=== PATIENT | female | born 1950 | race American Indian/Alaskan Native ===

== ENCOUNTER 2017-03-14 12:39 | Emergency (ER) | payer MEDICAID, MEDICARE ==
--- NOTE | 2017-03-14 13:47 | XRay Report ---
PA and lateral chest: Chest pain, SOB. There are singular bilateral curvilinear areas of increased density. The lungs otherwise are clear. The aorta is tortuous with calcification in the aortic arch. The heart is probably borderline in size but there is no vascular congestion. These findings are generally unchanged from prior study in October 2015. Impressions: Bilateral pleural scarring. Borderline heart size.
[2017-03-14 14:25] LABS: Basophils % (Auto) 0.2 % (0.0-1.8); Eosinophils % (Auto) 0.9 % (0.0-4.3); Hematocrit 35.6 % (30.3-42.9); Hemoglobin 11.4 gm/dl (10.1-14.3); Mean Corpuscular HGB Conc 32 % (30-34); Mean Corpuscular Volume 80 fl (79-97); Platelet Count 263 K/mm3 (140-440); Red Blood Count 4.45 M/mm3 (3.65-5.03); Red Cell Distribution Width 18.7 % (13.2-15.2); White Blood Count 7.2 K/mm3 (4.5-11.0)
[2017-03-14 14:33] LABS: Mean Corpuscular Hemoglobin 26 pg (28-32)
[2017-03-14 14:42] LABS: Anion Gap 15 mmol/L; Blood Urea Nitrogen 9 mg/dL (7-17); Calcium 8.3 mg/dL (8.4-10.2); Carbon Dioxide 29 mmol/L (22-30); Chloride 93.4 mmol/L (98-107); Glucose 109 mg/dL (65-100); Potassium 4.2 mmol/L (3.6-5.0); Sodium 133 mmol/L (137-145)
[2017-03-14] MEDS ORDERED: PERCOCET 5/325 PO ONE (20:55)
--- NOTE | 2017-03-14 21:02 | Emergency Department Report ---
ED General Adult HPI - General Chief complaint: Chest Pain Stated complaint: CHEST PAIN Time Seen by Provider: 03/14/17 20:25 Source: patient Mode of arrival: Ambulatory Limitations: No Limitations - History of Present Illness Initial comments: 66-year-old female presents to the emergency department complaining of upper chest pain. Patient states for the past day and a half she has been having constant, sharp pain in the upper, center of her chest that radiates to the right and under her right breast. She reports associated shortness of breath and nausea. Patient states she has had similar symptoms in the past and was diagnosed with inflammation. She states this time the pain is more severe. There are no other complaints. -: Gradual, days(s) (1.5) Location: chest Severity scale (0 -10): 9 Quality: sharp Consistency: constant Improves with: none Worsens with: movement Associated Symptoms: nausea/vomiting (nausea only), shortness of breath Treatments Prior to Arrival: none - Related Data Home Medications Medication Instructions Recorded Confirmed Last Taken Levothyroxine [Synthroid] 1 tab PO DAILY 10/03/13 03/14/17 03/14/17 Ipratropium/Albuterol Sulfate 2 inhalation INHALATION DAILY 08/25/14 03/14/17 [Combivent Respimat] Amlodipine Besylate [Amlodipine 10 mg PO DAILY 11/09/14 03/14/17 03/14/17 Besylate] Anastrozole [Anastrozole] 1 mg PO DAILY 11/09/14 03/14/17 03/14/17 Valsartan/Hydrochlorothiazide 1 tab PO DAILY 11/09/14 03/14/17 03/14/17 [Valsartan-Hctz 320-25 mg] Aspirin EC [Aspirin Enteric Coated 81 mg PO DAILY 03/07/15 03/14/17 03/14/17 TAB] Carvedilol [Coreg] 3.125 mg PO BID 03/16/15 03/14/17 03/14/17 Lactulose 10 gm PO TID 10/20/15 03/14/17 03/14/17 Budesoni/Formotero 160-4.5(Nf) 2 puff IH BID 03/14/17 03/14/17 03/14/17 [Symbicort 160-4.5 (Nf)] Colchicine 0.6 mg PO BID 03/14/17 03/14/17 03/14/17 Letrozole (Nf) [Femara (Nf)] 2.5 mg PO QDAY 03/14/17 03/14/17 03/14/17 Sennosides [Senna] 2 tab PO QHS 03/14/17 03/14/17 03/13/17 Previous Rx's Medication Instructions Recorded Last Taken Type Ergocalciferol [Vitamin D2] 50,000 unit PO QMONTH #13 capsule 10/25/14 03/19/15 Rx Omeprazole [PriLOSEC] 40 mg PO DAILY #30 capsule. 10/25/14 03/14/17 Rx hydrALAZINE [Apresoline TAB] 50 mg PO BID #60 tablet 10/25/14 03/14/17 Rx Docusate Sodium [Colace] 100 mg PO BID PRN #30 capsule 03/20/15 Unknown Rx HYDROcodone/APAP 5-325 [[place] 1 each PO Q4HR PRN #20 tablet 03/29/15 Unknown Rx 5/325] Albuterol *Only Ed* [Proventil 2.5 mg IH Q4H PRN #1 box 10/22/15 Unknown Rx 0.5% NEBS] Ipratropium [Atrovent NEB] 0.5 mg IH Q8HRT PRN #1 box 10/22/15 Unknown Rx Nebulizer [Compact Compressor 1 each MC DAILY PRN #1 kit 10/22/15 Unknown Rx Nebulizer] Prednisone [predniSONE 10 mg 10 mg PO .TAPER #1 tab.ds.pk 10/22/15 Unknown Rx (6-Day Pack, 21 Tabs)] oxyCODONE /ACETAMINOPHEN [Percocet 1 tab PO Q6HR PRN #20 tablet 03/14/17 Unknown Rx 5/325] Allergies Allergy/AdvReac Type Severity Reaction Status Date / Time acetaminophen [From Tylenol] Allergy Itching Verified 03/14/17 12:52 Penicillins Allergy Itching Verified 03/14/17 12:52 CHEMO Allergy Shortness Uncoded 10/19/15 15:25 of Breath RADIATION Allergy Shortness Uncoded 10/19/15 15:25 of Breath ED Review of Systems ROS: Stated complaint: CHEST PAIN Other details as noted in HPI Comment: All other systems reviewed and negative Respiratory: shortness of breath Cardiovascular: chest pain Gastrointestinal: nausea ED Past Medical Hx - Past Medical History Previous Medical History?: Yes Hx Hypertension: Yes (on coreg) Hx Heart Attack/AMI: No Hx Diabetes: No Hx GERD: Yes Hx Liver Disease: No Hx Renal Disease: No Hx of Cancer: Yes (breast cancer) Hx Sickle Cell Disease: No Hx Arthritis: Yes Hx Kidney Stones: No Hx Asthma: No Hx COPD: Yes (O2 2L N/C AT BEDTIME) Hx Tuberculosis: No Hx HIV: No Additional medical history: hypothyroid. morbid obesity. TIA. gout - Surgical History Past Surgical History?: Yes Hx Open Heart Surgery: No Hx Cholecystectomy: Yes Hx Appendectomy: No Hx Breast Surgery: Yes (LEFT MASTECTOMY) Additional Surgical History: anorectal surgery..POLYPS REMOVED. - Family History Family history: no significant - Social History Smoking Status: Never Smoker Substance Use Type: None - Medications Home Medications: Home Medications Medication Instructions Recorded Confirmed Last Taken Type Levothyroxine [Synthroid] 1 tab PO DAILY 10/03/13 03/14/17 03/14/17 History Ipratropium/Albuterol Sulfate 2 inhalation INHALATION DAILY 08/25/14 03/14/17 History [Combivent Respimat] Ergocalciferol [Vitamin D2] 50,000 unit PO QMONTH #13 capsule 10/25/14 03/14/17 03/19/15 Rx Omeprazole [PriLOSEC] 40 mg PO DAILY #30 capsule. 10/25/14 03/14/17 03/14/17 Rx hydrALAZINE [Apresoline TAB] 50 mg PO BID #60 tablet 10/25/14 03/14/17 03/14/17 Rx Amlodipine Besylate [Amlodipine 10 mg PO DAILY 11/09/14 03/14/17 03/14/17 History Besylate] Anastrozole [Anastrozole] 1 mg PO DAILY 11/09/14 03/14/17 03/14/17 History Valsartan/Hydrochlorothiazide 1 tab PO DAILY 11/09/14 03/14/17 03/14/17 History [Valsartan-Hctz 320-25 mg] Aspirin EC [Aspirin Enteric Coated 81 mg PO DAILY 03/07/15 03/14/17 03/14/17 History TAB] Carvedilol [Coreg] 3.125 mg PO BID 03/16/15 03/14/17 03/14/17 History Docusate Sodium [Colace] 100 mg PO BID PRN #30 capsule 03/20/15 03/14/17 Unknown Rx HYDROcodone/APAP 5-325 [[place] 1 each PO Q4HR PRN #20 tablet 03/29/15 03/14/17 Unknown Rx 5/325] Lactulose 10 gm PO TID 10/20/15 03/14/17 03/14/17 History Albuterol *Only Ed* [Proventil 2.5 mg IH Q4H PRN #1 box 10/22/15 03/14/17 Unknown Rx 0.5% NEBS] Ipratropium [Atrovent NEB] 0.5 mg IH Q8HRT PRN #1 box 10/22/15 03/14/17 Unknown Rx Nebulizer [Compact Compressor 1 each MC DAILY PRN #1 kit 10/22/15 03/14/17 Unknown Rx Nebulizer] Prednisone [predniSONE 10 mg 10 mg PO .TAPER #1 tab.ds.pk 10/22/15 03/14/17 Unknown Rx (6-Day Pack, 21 Tabs)] Budesoni/Formotero 160-4.5(Nf) 2 puff IH BID 03/14/17 03/14/17 03/14/17 History [Symbicort 160-4.5 (Nf)] Colchicine 0.6 mg PO BID 03/14/17 03/14/17 03/14/17 History Letrozole (Nf) [Femara (Nf)] 2.5 mg PO QDAY 03/14/17 03/14/17 03/14/17 History Sennosides [Senna] 2 tab PO QHS 03/14/17 03/14/17 03/13/17 History oxyCODONE /ACETAMINOPHEN [Percocet 1 tab PO Q6HR PRN #20 tablet 03/14/17 Unknown Rx 5/325] ED Physical Exam - General Limitations: No Limitations General appearance: alert, in no apparent distress - Head Head exam: Present: atraumatic, normocephalic - Eye Eye exam: Present: normal appearance, PERRL, EOMI - ENT ENT exam: Present: normal exam, normal orophraynx, mucous membranes moist - Neck Neck exam: Present: normal inspection, full ROM. Absent: tenderness - Respiratory Respiratory exam: Present: normal lung sounds bilaterally, chest wall tenderness (superior anterior chest wall tender to palpation. Palpation reproduces her complaint.). Absent: respiratory distress - Cardiovascular Cardiovascular Exam: Present: regular rate, normal rhythm, normal heart sounds - GI/Abdominal GI/Abdominal exam: Present: soft, normal bowel sounds. Absent: distended, tenderness - Extremities Exam Extremities exam: Present: normal inspection, full ROM. Absent: tenderness - Back Exam Back exam: Present: normal inspection, full ROM. Absent: tenderness - Neurological Exam Neurological exam: Present: alert, oriented X3. Absent: motor sensory deficit - Skin Skin exam: Present: warm, dry, intact ED Course Vital Signs 03/14/17 03/14/17 03/14/17 12:52 19:32 19:45 Temperature 98.0 F Pulse Rate 66 59 L 66 Respiratory 18 18 15 Rate Blood Pressure 143/77 130/96 O2 Sat by Pulse 99 96 Oximetry 03/14/17 20:13 Temperature Pulse Rate Respiratory 18 Rate Blood Pressure O2 Sat by Pulse 95 Oximetry ED Medical Decision Making - Lab Data Result diagrams: 03/14/17 13:33 03/14/17 13:33 - EKG Data -: EKG Interpreted by Ok EKG shows normal: sinus rhythm, intervals, QRS complexes, ST-T waves Rate: normal - EKG Data When compared to previous EKG there are: previous EKG unavailable Interpretation: normal EKG, other (left axis deviation) - Radiology Data Radiology results: report reviewed Chest x-ray shows no acute cardiopulmonary abnormality. - Medical Decision Making Lab and imaging results reviewed and discussed with the patient. Patient has had a nonischemic ECG and 2 negative troponins. Patient will be discharged home at this time to follow up with her primary care physician. - Differential Diagnosis atypical chest pain, chest wall pain Critical care attestation.: If time is entered above; I have spent that time in minutes in the direct care of this critically ill patient, excluding procedure time. ED Disposition Clinical Impression: Non-cardiac chest pain Disposition: DISCHARGED TO HOME OR SELFCARE Is pt being admited?: No Condition: Stable Instructions: Chest Pain (ED) Prescriptions: oxyCODONE /ACETAMINOPHEN [Percocet 5/325] 1 tab PO Q6HR PRN #20 tablet PRN Reason: Pain Referrals: DIALLO MELENDREZ MD [Primary Care Provider] - 3-5 Days Time of Disposition: 21:03
[2017-03-14 21:49] VITALS: BP 145/73
== END 2017-03-14 21:40 | disposition home or self-care (01) ==
LOC: ED 12:39
DX: R07.9 Chest pain, unspecified (principal); I10 Essential (primary) hypertension; K21.9 Gastro-esophageal reflux disease without esophagitis; Z85.3 Personal history of malignant neoplasm of breast; E03.9 Hypothyroidism, unspecified; E66.01 Morbid (severe) obesity due to excess calories
CPT/HCPCS: 36415; 71020; 80048; 84484; 85025; 93005; 93010; 99285

== ENCOUNTER 2018-02-18 10:20 | Outpatient (CLI) | payer MEDICARE ==
--- NOTE | 2018-02-18 11:09 | XRay Report ---
XRAY RIGHT SHOULDER THREE VIEWS: 02/18/18 10:20:00 CLINICAL: Right shoulder pain. FINDINGS: Mild osteopenia. No fracture or dislocation. Normal glenohumeral joint. Mild acromioclavicular joint arthritis. Normal soft tissues. IMPRESSION: Mild acromioclavicular joint arthritis and otherwise negative.
== END 2018-02-18 10:21 | disposition home or self-care (01) ==
LOC: SPVIMAG 10:20
PROVIDERS: ATTEND Orthopaedic Surgery
DX: M19.011 Primary osteoarthritis, right shoulder (principal); M85.811 Other specified disorders of bone density and structure, right shoulder